=== PATIENT | male | born 1975 | race Caucasian/White ===

== ENCOUNTER 2016-11-02 11:36 | Day surgery (SDC) | payer OTHER ==
[~2016-11-02 11:36] MED LIST: ceFAZolin 1 GM in NORMAL SALINE MINI-BAG+ 100 ML IV ONE
[2016-11-02] MEDS ORDERED: FAMOTIDINE IN SALINE, ISO-OSM 20 MG/50 ML PIGGYBACK IV SCH ×2 (12:23→14:35)
[2016-11-02] MEDS ORDERED: LIDOCAINE HCL 1% 20 ML VIAL SUBCUT ONE ×2 (12:23→14:35)
[2016-11-02] MEDS ORDERED: ACETAMINOPHEN 1,000 MG/100 ML VIAL IV SCH ×2 (12:23→14:35)
[2016-11-02] MEDS ORDERED: MIDAZOLAM HCL 2 MG/2 ML SYR IV ONE (12:23)
[2016-11-02] MEDS ORDERED: ceFAZolin 1 GM in NORMAL SALINE MINI-BAG+ 100 ML IV ONE (12:23)
[2016-11-02] MEDS ORDERED: MIDAZOLAM HCL 2 MG/2 ML VIAL ONE (12:38)
[2016-11-02] MEDS ORDERED: ceFAZolin 1 GM/10 ML VIAL ONE (12:38)
[2016-11-02] MEDS ORDERED: BUPIVACAINE HCL/PF 0.25% 10 ML VIAL INJ ONE (12:42)
[2016-11-02] MEDS ORDERED: LACTATED RINGERS 1,000 ML IV SCH ×3 (13:00→14:35)
[2016-11-02] MEDS ORDERED: FENTANYL 250 MCG/5 ML VIAL ONE (13:13)
[2016-11-02] MEDS ORDERED: SUCCINYLCHOLINE CHLORIDE 200 MG/10 ML VIAL ONE (13:13)
[2016-11-02] MEDS ORDERED: ROCURONIUM BROMIDE 50 MG/5 ML VIAL IV ONE (13:13)
[2016-11-02] MEDS ORDERED: KETOROLAC TROMETHAMINE 30 MG/ML VIAL ONE (13:13)
[2016-11-02] MEDS ORDERED: ONDANSETRON HCL 4 MG/2 ML VIAL ONE ×3 (13:14→16:12)
[2016-11-02] MEDS ORDERED: DEXAMETHASONE 10 MG/ML VIAL ONE (13:14)
[2016-11-02] MEDS ORDERED: HEMOSTATIC MATRIX 5 ML SYR MISC ONE (14:01)
--- NOTE | 2016-11-02 14:25 | RADIOLOGY REPORT ---
Two views of the pelvis and left hip without prior films for comparison demonstrates no displaced fracture, subluxation or bony destructive change. The visualized joints appear unremarkable. No soft tissue abnormality identified. IMPRESSION: Unremarkable plain films of the left hip. MTDD
[2016-11-02] MEDS ORDERED: ONDANSETRON HCL 4 MG/2 ML VIAL IV PRN (14:35)
[2016-11-02] MEDS ORDERED: FENTANYL 100 MCG/2 ML VIAL IV PRN (14:35)
[2016-11-02] MEDS ORDERED: MORPHINE SULFATE 10 MG/ML SYR IV PRN (14:35)
[2016-11-02] MEDS ORDERED: HYDROmorphone HCL 1 MG/ML SYR IV PRN (14:35)
[2016-11-02 15:21] VITALS: TEMP 97.5
--- NOTE | 2016-11-02 15:28 | PROCEDURE NOTE: Gen Surgery ---
General Surgery Procedure Note - Date of Encounter Date of Encounter: 11/02/16 - Brief Operative Note (1) Left lower quadrant pain Date of procedure: 11/02/16 Pre-Op Diagnosis: Left inguinal hernia Post-op diagnosis: same Procedure: Left inguinal hernia repair Implants: mesh Anesthesia Type: General Physician: NEWTON CHASE Pathology: none sent X-ray taken: No Sponge and instrument counts: correct Condition: stable Disposition: same day
[2016-11-02 15:30] VITALS: RESP 12
[2016-11-02] MEDS ORDERED: FENTANYL 100 MCG/2 ML VIAL ONE (15:45)
[2016-11-02 15:55] VITALS: BP 108/45; PULSE 58; O2SAT 90
--- NOTE | 2016-11-02 17:22 | OPERATIVE REPORT ---
DATE OF SURGERY: 11/02/16 SURGEON: Jose Witt MD ANESTHESIA: General endotracheal by Larry Dutta. PREOPERATIVE DIAGNOSIS: Left inguinal hernia. POSTOPERATIVE DIAGNOSIS: Left inguinal hernia. PROCEDURE PERFORMED: Repair of left inguinal hernia. FINDINGS: Following induction of general anesthesia I was able to examine the patient and feel a direct left inguinal hernia defect. I had been unable to feel this in the office because he was extremely sensitive in this area. There were no hernias palpated on the right side. At the time of exploration there was a lipoma on the cord but there was no indirect defect. There was an indirect defect and no femoral defect was palpable. During the procedure, the ilioinguinal nerve was sacrificed. The iliohypogastric nerve was visualized and it was preserved. SUMMARY: The patient was taken to the operating room and placed in the supine position. He was given smooth induction of general anesthesia via endotracheal tube. I was able to examine the patient at this point and I could feel a direct defect on the left. I could feel no defects on the right. I therefore decided to abandon the laparoscopy. The patient was shaved and then a ChloraPrep solution was applied to the surgical site. Three minutes were allowed for this to dry. During this time a time out was called and the correct patient, correct preoperative medications and correct procedure were verified. The patient was then sterilely draped. A 6 cm incision was marked out with most of the incision medial to where the deep ring was estimated to be. Marcaine 0.25% without epinephrine was then infiltrated. The skin was sharply incised. Deeper dissection was done with the cautery. Dissection was carried down to the external oblique aponeurosis. The aponeurosis opened up through the superficial ring. Retractors were then placed. The cord was then circumferentially controlled near the pubic tubercle. A Beba drain was placed around it. The ilioinguinal nerve was then noted to be in the way of the dissection and I did not think I could place a mesh and preserve it so it was sacrificed. A lipoma was then dissected off the cord and the lipoma was reduced back into the preperitoneal space. A single suture of 0 Prolene was placed to reapproximate the tissues to reduce the direct defect. A Brandy type Surgimesh was brought in the field and it was sewn in place using 2-0 Prolene. The two leaves of the mesh were wrapped around the cord and a suture of 2-0 Prolene was placed lateral brining the two leaves together. This made the ring size of my small finger. When adequate hemostasis had been achieved the external oblique aponeurosis was closed with a running 3-0 Vicryl. The subcu was closed with interrupted 3-0 Vicryl. The skin was closed with running subcuticular 4-0 Monocryl. Steri-Strips and dressing were then applied and the patient taken from the operating room to the recovery room. MANAV
--- NOTE | 2016-11-04 11:43 | PREOPERATIVE H&P ---
History of Present Illness (Jose Witt M.D.; 10/27/2016 3:21 PM) The patient is a 41 year old male who presents with a groin sprain/strain. The patient sustained an injury to the left groin. Symptoms include pain, while symptoms do not include swelling or stiffness. The pain is located in the left groin. There is no radiation. The patient describes the pain as sharp. Onset was gradual. The patient describes symptoms as worsening. Symptoms are exacerbated by movement, bending and lifting. Symptoms are relieved by rest. Associated symptoms do not include nausea or vomiting. He rested the area for the last 2 weeks and continues to have pain. He has noted a bulge in the region as the day goes on. Problem List/Past Medical (Jose Witt M.D.; 10/27/2016 3:21 PM) Abdominal pain (R10.9) Hernia, inguinal, right (K40.90) Repaired in Childhood Left lower quadrant pain (R10.32) Groin strain (S76.219A) Diverticulitis (K57.92)06/2016 Treatment Not Helpful; CBC, CMP, Lipase, UA Normal; Dr. Chapman Chronic groin pain, left (R10.32)06/2016 Pain when standing, but goes away when lying down. Allergies (Jennifer Joy LPN; 10/27/2016 3:03 PM) No Known Drug Allergies Family History (Jose iWtt M.D.; 10/27/2016 3:21 PM) Unremarkable Family Members In General. Social History (Jennifer Joy LPN; 10/27/2016 3:03 PM) Care Provider PCP: Dr. Chapman Tobacco Use Never smoker. Alcohol Use Drinks Socially. Medication History (Jennifer Joy LPN; 10/27/2016 3:03 PM) Medications Reconciled Review of Systems (Jose Witt M.D.; 10/27/2016 3:21 PM) General Present- Feeling well. Not Present- Chills and Fever. Skin Not Present- Bruising and Hives. HEENT Not Present- Allergies and Headache. Neck Not Present- Neck Mass and Neck Pain. Respiratory Not Present- Chronic Cough. Cardiovascular Not Present- Chest Pressure and Heart Problems. Gastrointestinal Not Present- Bloating and GI Problems. Male Genitourinary Not Present- Dysuria and Frequency. Musculoskeletal Present- Arthralgia and Back Pain. Neurological Not Present- Neurological Problems and Seizures. Psychiatric Not Present- Anxiety and Depression. Endocrine Not Present- Diabetes and Thyroid Problems. Hematology Not Present- Anemia and Blood Clots. Vitals (Jennifer LizShailesh Joy LPN; 10/27/2016 3:03 PM) 10/27/2016 3:00 PM Weight: 202.1 lb Height: 68in Body Surface Area: 2.05 m Body Mass Index: 30.73 kg/m Temp.: 97.6F(Temporal) Pulse: 73 (Regular) Resp.: 14 (Unlabored) P.OX: 93% (Room air) BP: 122/85 (Sitting, Left Arm, Standard) Physical Exam (Jose Witt M.D.; 10/27/2016 3:48 PM) Chest and Lung Exam Chest and lung exam reveals -Clear. Cardiovascular Cardiovascular examination reveals -RRR, No murmurs present. Abdomen Inspection Inspection of the abdomen reveals - Soft and Non-tender. Male Genitourinary Evaluation of genitourinary system reveals-scrotum non-tender, no masses, normal testes, no palpable masses, No Hernias(He has moderate tenderness in the left inguinal region making it impossible to evaluate.). Assessment & Plan (Jose Witt M.D.; 10/27/2016 3:50 PM) Chronic groin pain, left (R10.32) Story: Pain when standing, but goes away when lying down. Hernia, inguinal, right (K40.90) Story: Repaired in Childhood Current Plans INITIAL REPAIR OF REDUCIBLE INGUINAL,5+YRS (54698) DIAG LAPARO SEPARATE PROC (23798) Pt Education - Post Surgery Home Care Instructions Note:The risks of wound infection, bleeding, hernia recurrance and chronic pain were discussed. We briefly discussed the anesthetic choices and noted that this could be more thoroughly reviewed with the contact clerk. Post op instructions were provided. A script was not written. Signed by Jose Witt M.D. (10/27/2016 3:52 PM) There are no interval changes. Signed Jose Witt MD 11/02/2016. MANAV
== END 2016-11-02 16:32 | disposition home or self-care (01) ==
LOC: SDS 11:36
PROVIDERS: ATTEND Surgery
DX: K40.90 Unilateral inguinal hernia, without obstruction or gangrene, not specified as recurrent (principal); R10.32 Left lower quadrant pain
CPT/HCPCS: J0690; J1100; J1885; J2250; J2405